=== PATIENT | female | born 1950 | race Caucasian/White ===

== ENCOUNTER → 2020-09-27 | Outpatient (REF) | payer MEDICARE, OTHER ==
[2020-09-28 13:33] LABS: BACTERIA, URINE AUTO NEGATIVE (NEGATIVE); RBC, URINE AUTO 0 /HPF (0-3); SQUAMOUS EPITHELIAL CELL UR AU 0 /HPF (0-6); WBC, URINE AUTO 0 /HPF (0-3)
== END ==
LOC: M SMT 13:09
PROVIDERS: ATTEND Specialist
DX: N39.0 Urinary tract infection, site not specified (principal)

== ENCOUNTER → 2021-02-14 | Outpatient (REF) | payer MEDICARE, OTHER ==
[2021-02-14 18:07] LABS: APPEARANCE, URINE CLEAR (CLEAR); BACTERIA, URINE AUTO NEGATIVE (NEGATIVE); BILIRUBIN, URINE AUTO NEGATIVE (NEGATIVE); BLOOD, URINE BLOOD NEGATIVE (NEGATIVE); COLOR, URINE YELLOW (YELLOW); GLUCOSE, URINE (UA) AUTO NEGATIVE (NEGATIVE); KETONE, URINE AUTO NEGATIVE (NEGATIVE); LEUKOCYTE ESTERASE, URINE AUTO TRACE (NEGATIVE); NITRITE, URINE AUTO NEGATIVE (NEGATIVE); PROTEIN, URINE AUTO NEGATIVE (NEGATIVE); RBC, URINE AUTO 1 /HPF (0-3); SPECIFIC GRAVITY URINE AUTO 1.004 (1.002-1.035); SQUAMOUS EPITHELIAL CELL UR AU 0 /HPF (0-6); UROBILINOGEN, URINE AUTO 0.2 mg/dL (0.0-2.0); WBC, URINE AUTO 2 /HPF (0-3)
== END ==
LOC: M SMT 17:07
PROVIDERS: ATTEND Nurse Practitioner Women's Health
DX: N39.0 Urinary tract infection, site not specified (principal)
CPT/HCPCS: 81001; 87086; G0463

== ENCOUNTER 2021-10-09 08:41 | Day surgery (SDC) | payer MEDICARE ==
[~2021-10-09] VITALS: Ht 170.2 cm; Wt 76.4 kg
[~2021-10-09 08:41] MED LIST: ACET-716 PO; ALBU8.5H INH; AXERT PO; CALCCAP4 PO; CELE1CAP9 PO; COQ-100C5 PO; CYCL5TAB PO; DICY20TA3 PO; DOXY100T2 PO; EPIP0.3I2 IM; ESOM1CAP5 PO; ESTR0.1C5 VA; ESTR1TD TD; FENO134C16 PO; FLON1SPR; GERI8.6T PO; LORA-674 PO; MECL-86 PO; MIRA3350 PO; NITR0.4S14 SL; NO ITAB PO; NS 1,000 ML IV ONE; NYST50SS SS; OCUVTAB4 PO; OMEGCAP9 PO; PROB250C PO; PROC5TAB57 PO; ROSU20TA5 PO; TRAM50TA2 PO; TREL1AER INH; TRIA37.5 PO; TRIA37.577 PO; VALT1TAB PO; VARE1TAB2 PO; VITA100054 PO; [UNRECOGNIZED DRUG - OTHER] OU
[2021-10-09] MEDS ORDERED: propofoL 200 MG/20 ML VIAL As Ordered ONE ×2 (09:02→10:37)
[2021-10-09 11:04] VITALS: BP 131/85
== END 2021-10-09 11:15 | disposition home or self-care (01) ==
LOC: M OPP 08:41
PROVIDERS: ATTEND Internal Medicine Gastroenterology
DX: K22.70 Barrett's esophagus without dysplasia (principal); K22.89 Other specified disease of esophagus; K44.9 Diaphragmatic hernia without obstruction or gangrene; R12 Heartburn; Z79.02 Long term (current) use of antithrombotics/antiplatelets; Z79.52 Long term (current) use of systemic steroids; Z79.818 Long term (current) use of other agents affecting estrogen receptors and estrogen levels; Z79.891 Long term (current) use of opiate analgesic; Z79.899 Other long term (current) drug therapy; Z88.0 Allergy status to penicillin; Z88.2 Allergy status to sulfonamides; Z88.8 Allergy status to other drugs, medicaments and biological substances; Z91.040 Latex allergy status; F17.210 Nicotine dependence, cigarettes, uncomplicated

== ENCOUNTER 2025-01-09 10:00 | Day surgery (SDC) | payer MEDICARE ==
[~2025-01-09] VITALS: Ht 167.6 cm; Wt 79.3 kg
[~2025-01-09 10:00] MED LIST changes: +ALIR75PE3; +ALLE180T33 PO; +ANOR1AER; +CELE0.09 PO; -CELE1CAP9 PO; +COQ1200C3 PO; -CYCL5TAB PO; +CYCL5TAB4 PO; +D31000CA5 PO; +ESOM1CAP20 PO; -ESOM1CAP5 PO; -FENO134C16 PO; +FENO134C20 PO; -GERI8.6T PO; +LORA-1041 PO; -LORA-674 PO; -NS 1,000 ML IV ONE; +NYST-38 SS; -NYST50SS SS; +PEPP90CA PO; +POTA-298 PO; +PRES1CHW PO; +PROM50TA4 PO; -ROSU20TA5 PO; +ROSU20TA86 PO; +SENN-193 PO; +SUMA50TA2 PO; -VITA100054 PO
[2025-01-09] MEDS ORDERED: ONDANSETRON 4MG 2ML VIAL As Ordered ONE (11:04)
[2025-01-09 11:54] VITALS: TEMP 97.6
[2025-01-09 12:18] VITALS: BP 108/97; O2SAT 97
== END 2025-01-09 12:19 | disposition home or self-care (01) ==
LOC: M OPP 10:00
PROVIDERS: ATTEND Internal Medicine Gastroenterology
DX: Z12.11 Encounter for screening for malignant neoplasm of colon (principal); D12.6 Benign neoplasm of colon, unspecified; K57.30 Diverticulosis of large intestine without perforation or abscess without bleeding; K64.0 First degree hemorrhoids; K22.70 Barrett's esophagus without dysplasia; K22.89 Other specified disease of esophagus; K44.9 Diaphragmatic hernia without obstruction or gangrene; K31.89 Other diseases of stomach and duodenum; R12 Heartburn; F17.210 Nicotine dependence, cigarettes, uncomplicated; G47.30 Sleep apnea, unspecified; Z88.1 Allergy status to other antibiotic agents; Z88.2 Allergy status to sulfonamides; Z88.8 Allergy status to other drugs, medicaments and biological substances; Z91.041 Radiographic dye allergy status; J44.9 Chronic obstructive pulmonary disease, unspecified
CPT/HCPCS: 43239; 45385; 88305; J2405